=== PATIENT | male | born 1995 | race Hispanic/Latino ===

== ENCOUNTER 2021-06-13 00:43 | Emergency (ER) | payer SELFPAY ==
[~2021-06-13] VITALS: Ht 177.8 cm; Wt 213.2 kg
[2021-06-13 02:49] VITALS: BP 152/73
== END 2021-06-13 03:09 | disposition home or self-care (01) ==
LOC: ER 00:46
DX: U07.1 COVID-19 (principal); R55 Syncope and collapse; S00.01XA Abrasion of scalp, initial encounter; S00.83XA Contusion of other part of head, initial encounter; W18.11XA Fall from or off toilet without subsequent striking against object, initial encounter; Y93.89 Activity, other specified; Y92.012 Bathroom of single-family (private) house as the place of occurrence of the external cause
CPT/HCPCS: 70450; 70486; 72125; 99283